=== PATIENT | female | born 1985 | race Caucasian/White ===

== ENCOUNTER 2018-03-24 12:16 | Emergency (ER) | payer MEDICAID, OTHER ==
[2018-03-24 13:16] LABS: ADD MAN DIFF? NO
[2018-03-24 13:21] LABS: WHITE BLOOD COUNT 7.5 10^3/ul (4.8-10.8)
[2018-03-24 13:21] LABS: BASOPHILS % 0.4 % (0.0-2.0); EOSINOPHILS # 0.1 10^3/ul (0.0-0.5); EOSINOPHILS % 1.1 % (0.0-7.0); HEMOGLOBIN 11.7 g/dl (12.0-16.0); LYMPHOCYTES # 1.7 10^3/ul (0.8-2.9); LYMPHOCYTES % 23.2 % (15.0-51.0); MEAN CORPUSCULAR HEMOGLOBIN 29.4 pg (29.0-33.0); MEAN CORPUSCULAR HGB CONC 33.4 g/dl (32.0-37.0); MEAN CORPUSCULAR VOLUME 87.9 fl (82.0-101.0); MEAN PLATELET VOLUME 9.2 fl (7.4-10.4); MONOCYTE # 0.4 10^3/ul (0.3-0.9); MONOCYTES % 4.7 % (0.0-11.0); NEUTROPHIL # 5.2 10^3/ul (1.6-7.5); NEUTROPHILS % 70.3 % (39.0-77.0); PLATELET COUNT 263 10^3/UL (140-415); RED BLOOD COUNT 3.98 10^6/ul (4.20-5.40); RED CELL DISTRIBUTION WIDTH 12.3 % (11.5-14.5)
[2018-03-24 13:57] LABS: ADD UMIC YES; UR ASCORBIC ACID NEGATIVE (NEGATIVE); UR BACTERIA FEW /HPF (NONE SEEN); UR BILIRUBIN (Dip) NEGATIVE (NEGATIVE); UR BLOOD (Dip) 1+ mg/dL (NEGATIVE); UR CLARITY SLIGHTLY CLOUDY (CLEAR); UR COLOR YELLOW (YELLOW); UR GLUCOSE (Dip) NEGATIVE (NEGATIVE); UR KETONES (Dip) NEGATIVE (NEGATIVE); UR LEUKOCYTE ESTERASE (Dip) 3+ Leu/ul (NEGATIVE); UR NITRITE (Dip) POSITIVE (NEGATIVE); UR RBC 4 /HPF (0-5); UR SPECIFIC GRAVITY (Dip) 1.013 (1.003-1.030); UR SQUAMOUS EPITHELIAL CELL FEW /HPF (FEW); UR TOTAL PROTEIN (Dip) NEGATIVE (NEGATIVE); UR UROBILINOGEN (Dip) NEGATIVE (NEGATIVE); UR WBC 6 /HPF (0-5)
[2018-03-24] MEDS: ACETAMINOPHEN 500 MG TAB PO (14:32)
[2018-03-24] MEDS: CEPHALEXIN 500 MG CAP PO (14:32)
== END 2018-03-24 14:59 | disposition home or self-care (01) ==
LOC: FTE 12:16
DX: O26.891 Other specified pregnancy related conditions, first trimester (principal); R10.2 Pelvic and perineal pain; Z3A.01 Less than 8 weeks gestation of pregnancy
CPT/HCPCS: 36415; 76801; 76817; 81001; 84702; 85025; 86900; 86901; 99284-25

== ENCOUNTER 2018-06-11 18:34 | Emergency (ER) | payer SELFPAY, MEDICAID ==
[2018-06-11 21:23] LABS: ADD MAN DIFF? NO
[2018-06-11 21:30] LABS: BASOPHIL # 0.1 10^3/ul (0.0-0.1); BASOPHILS % 0.6 % (0.0-2.0); EOSINOPHILS # 0.2 10^3/ul (0.0-0.5); EOSINOPHILS % 2.4 % (0.0-7.0); HEMATOCRIT 37.3 % (37.0-47.0); HEMOGLOBIN 12.9 g/dl (12.0-16.0); LYMPHOCYTES # 1.7 10^3/ul (0.8-2.9); LYMPHOCYTES % 20.6 % (15.0-51.0); MEAN CORPUSCULAR HEMOGLOBIN 30.8 pg (29.0-33.0); MEAN CORPUSCULAR HGB CONC 34.6 g/dl (32.0-37.0); MONOCYTE # 0.4 10^3/ul (0.3-0.9); NEUTROPHIL # 5.9 10^3/ul (1.6-7.5); NEUTROPHILS % 70.1 % (39.0-77.0); PLATELET COUNT 294 10^3/UL (140-415); RED BLOOD COUNT 4.19 10^6/ul (4.20-5.40); RED CELL DISTRIBUTION WIDTH 12.9 % (11.5-14.5)
[2018-06-11 21:30] LABS: WHITE BLOOD COUNT 8.4 10^3/ul (4.8-10.8)
[2018-06-11 21:43] LABS: ADD UMIC YES; UR ASCORBIC ACID NEGATIVE (NEGATIVE); UR BACTERIA FEW /HPF (NONE SEEN); UR BILIRUBIN (Dip) NEGATIVE (NEGATIVE); UR BLOOD (Dip) 1+ mg/dL (NEGATIVE); UR CLARITY SLIGHTLY CLOUDY (CLEAR); UR COLOR YELLOW (YELLOW); UR GLUCOSE (Dip) NEGATIVE (NEGATIVE); UR KETONES (Dip) TRACE mg/dL (NEGATIVE); UR LEUKOCYTE ESTERASE (Dip) 3+ Leu/ul (NEGATIVE); UR NITRITE (Dip) NEGATIVE (NEGATIVE); UR RBC 2 /HPF (0-5); UR SPECIFIC GRAVITY (Dip) 1.013 (1.003-1.030); UR SQUAMOUS EPITHELIAL CELL FEW /HPF (FEW); UR TOTAL PROTEIN (Dip) NEGATIVE (NEGATIVE); UR UROBILINOGEN (Dip) NEGATIVE (NEGATIVE); UR WBC 7 /HPF (0-5)
== END 2018-06-11 23:28 | disposition home or self-care (01) ==
LOC: FTE 18:34
DX: O9A.212 Injury, poisoning and certain other consequences of external causes complicating pregnancy, second trimester (principal); S39.012A Strain of muscle, fascia and tendon of lower back, initial encounter; O23.12 Infections of bladder in pregnancy, second trimester; S39.93XA Unspecified injury of pelvis, initial encounter; R10.2 Pelvic and perineal pain; V49.40XA Driver injured in collision with unspecified motor vehicles in traffic accident, initial encounter; Z3A.18 18 weeks gestation of pregnancy
CPT/HCPCS: 76805; 81001; 84702; 85025; 86900; 86901; 99284-25

== ENCOUNTER 2018-11-01 11:34 | Outpatient (CLI) | payer MEDICAID ==
[2018-11-01 16:06] LABS: ADD UMIC YES; UR ASCORBIC ACID NEGATIVE (NEGATIVE); UR BACTERIA FEW /HPF (NONE SEEN); UR BILIRUBIN (Dip) NEGATIVE (NEGATIVE); UR BLOOD (Dip) NEGATIVE (NEGATIVE); UR CLARITY CLOUDY (CLEAR); UR COLOR YELLOW (YELLOW); UR GLUCOSE (Dip) NEGATIVE (NEGATIVE); UR KETONES (Dip) NEGATIVE (NEGATIVE); UR LEUKOCYTE ESTERASE (Dip) 1+ Leu/ul (NEGATIVE); UR MUCUS FEW /HPF (NONE SEEN); UR NITRITE (Dip) NEGATIVE (NEGATIVE); UR RBC 3 /HPF (0-5); UR SPECIFIC GRAVITY (Dip) 1.017 (1.003-1.030); UR SQUAMOUS EPITHELIAL CELL MANY /HPF (FEW); UR TOTAL PROTEIN (Dip) NEGATIVE (NEGATIVE); UR UROBILINOGEN (Dip) NEGATIVE (NEGATIVE); UR WBC 2 /HPF (0-5)
== END 2018-11-01 16:35 | disposition home or self-care (01) ==
LOC: OBT 11:34 → L-D 11:34 → OBT 16:35
DX: O26.893 Other specified pregnancy related conditions, third trimester (principal); R10.2 Pelvic and perineal pain; O36.63X0 Maternal care for excessive fetal growth, third trimester, not applicable or unspecified; O62.9 Abnormality of forces of labor, unspecified; Z3A.38 38 weeks gestation of pregnancy; Z87.440 Personal history of urinary (tract) infections
CPT/HCPCS: 76818; 81001; 82962

== ENCOUNTER 2018-11-04 07:55 | Inpatient (IN) | payer MEDICAID ==
[2018-11-04] MEDS ORDERED: MINERAL OIL LIGHT 10 ML VIAL TOP (08:30)
[2018-11-04] MEDS ORDERED: CARBOPROST 250 MCG INJ IM (08:30)
[2018-11-04] MEDS ORDERED: IBUPROFEN 600 MG TAB PO (08:30)
[2018-11-04] MEDS ORDERED: METHYLERGONOVINE 0.2 MG INJ IM (08:30)
[2018-11-04] MEDS ORDERED: LIDOCAINE 1% (MPF) 30 ML INJ INJ (08:30)
[2018-11-04] MEDS ORDERED: OXYTOCIN 30 UNITS/LR 500 ML IV ×3 (08:30→10:00)
[2018-11-04] MEDS ORDERED: MISOPROSTOL 200 MCG TAB PR (08:30)
[2018-11-04] MEDS ORDERED: BUTORPHANOL 2 MG INJ IV (08:30)
[2018-11-04 08:41] LABS: ADD MAN DIFF? NO
[2018-11-04 08:44] LABS: WHITE BLOOD COUNT 8.2 10^3/ul (4.8-10.8)
[2018-11-04 08:44] LABS: BASOPHIL # 0.1 10^3/ul (0.0-0.1); BASOPHILS % 0.6 % (0.0-2.0); EOSINOPHILS # 0.3 10^3/ul (0.0-0.5); EOSINOPHILS % 3.3 % (0.0-7.0); HEMATOCRIT 38.4 % (37.0-47.0); HEMOGLOBIN 13.2 g/dl (12.0-16.0); LYMPHOCYTES # 1.6 10^3/ul (0.8-2.9); LYMPHOCYTES % 19.2 % (15.0-51.0); MEAN CORPUSCULAR HEMOGLOBIN 31.2 pg (29.0-33.0); MEAN CORPUSCULAR HGB CONC 34.4 g/dl (32.0-37.0); MEAN CORPUSCULAR VOLUME 90.8 fl (82.0-101.0); MEAN PLATELET VOLUME 10.1 fl (7.4-10.4); MONOCYTE # 0.4 10^3/ul (0.3-0.9); MONOCYTES % 5.4 % (0.0-11.0); NEUTROPHIL # 5.8 10^3/ul (1.6-7.5); NEUTROPHILS % 70.5 % (39.0-77.0); PLATELET COUNT 227 10^3/UL (140-415); RED BLOOD COUNT 4.23 10^6/ul (4.20-5.40); RED CELL DISTRIBUTION WIDTH 12.6 % (11.5-14.5)
[2018-11-04 09:02] LABS: INR 0.89; PROTIME 12.1 Sec (11.9-14.9); PT RATIO 0.9
[2018-11-04 09:03] LABS: PARTIAL THROMBOPLASTIN TIME 27.4 Sec (23.0-35.0)
[2018-11-04 09:40] LABS: HEPATITIS B SURFACE ANTIGEN NEGATIVE (NEGATIVE)
[2018-11-04] MEDS ORDERED: MISOPROSTOL 50 MCG CAPSULE VAG (10:00)
[2018-11-04] MEDS: LACTATED RINGER'S 1,000 ML IV ×5 (11:26→21:19)
[2018-11-04] MEDS: MISOPROSTOL 50 MCG CAPSULE PO (11:29)
[2018-11-04] MEDS ORDERED: FENTAnyl 2MCG/ML-ROPIV 0.2% 100 ML (13:53)
[2018-11-04] MEDS ORDERED: NALOXONE (0.4 MG/ML) INJ IV (14:00)
[2018-11-04 15:20] LABS: RAPID PLASMA REAGIN NONREACTIVE (NR)
[2018-11-04] MEDS: ONDANSETRON 4 MG INJ IV (18:18)
[2018-11-04] MEDS: FENTAnyl 2MCG/ML-ROPIV 0.2% 100 ML BAG EPI (22:38)
[2018-11-05] MEDS: ONDANSETRON 4 MG INJ IV ×2 (00:49→07:29)
[2018-11-05] MEDS: LACTATED RINGER'S 1,000 ML IV ×4 (02:50→16:43)
[2018-11-05] MEDS: OXYTOCIN 30 UNITS/LR 500 ML IV ×2 (02:59→17:25)
[2018-11-05] MEDS ORDERED: EPHEDrine SULFATE 50 MG/5 ML SYG (06:17)
[2018-11-05] MEDS: EPHEDrine SULFATE 50 MG/5 ML SYG IV (06:18)
[2018-11-05] MEDS: FENTAnyl 2MCG/ML-ROPIV 0.2% 100 ML BAG EPI ×2 (09:17→16:47)
[2018-11-05] MEDS: KETOROLAC 30 MG INJ IV (17:40)
[2018-11-05] MEDS: LACTATED RINGER'S 1,000 ML IV* (18:28)
[2018-11-05] MEDS ORDERED: MISOPROSTOL 200 MCG TAB PR (18:30)
[2018-11-05] MEDS ORDERED: ZOLPIDEM 5 MG TAB PO (18:30)
[2018-11-05] MEDS ORDERED: DIBUCAINE 1% 30 GM OINT TOP (18:30)
[2018-11-05] MEDS ORDERED: CARBOPROST 250 MCG INJ IM (18:30)
[2018-11-05] MEDS ORDERED: OXYTOCIN 30 UNITS/LR 500 ML IV (18:30)
[2018-11-05] MEDS ORDERED: HYDROCODONE/APAP (5/325) TAB PO (18:30)
[2018-11-05] MEDS ORDERED: METHYLERGONOVINE 0.2 MG INJ IM (18:30)
[2018-11-05] MEDS: BENZOCAINE 20% 56 ML SPRAY TOP (18:44)
[2018-11-05] MEDS: WITCH HAZEL/GLYCERIN PAD PR (18:44)
[2018-11-05] MEDS: LANOLIN HPA 1 PKT TOP (18:44)
[2018-11-05] MEDS: CEPHALEXIN 500 MG CAP PO ×2 (18:45→23:40)
[2018-11-05] MEDS: IBUPROFEN 600 MG TAB PO ×2 (18:45→23:51)
[2018-11-05] MEDS: MAGNESIUM HYDROXIDE 30ML CUP PO (21:45)
[2018-11-05] MEDS: SENNA/DOCUSATE NA (8.6MG/50MG) TAB PO (21:45)
[2018-11-05] MEDS: ESTROGENS CONJUGATED 42.5 GM VAG CR VAG (21:46)
[2018-11-05] MEDS: HYDROCODONE/APAP (5/325) TAB PO (21:46)
[2018-11-06] MEDS: LACTATED RINGER'S 1,000 ML IV* (02:27)
[2018-11-06] MEDS: WITCH HAZEL/GLYCERIN PAD PR (02:40)
[2018-11-06] MEDS: CEPHALEXIN 500 MG CAP PO ×4 (06:00→23:34)
[2018-11-06] MEDS: IBUPROFEN 600 MG TAB PO ×4 (06:01→23:34)
[2018-11-06 08:42] LABS: ADD MAN DIFF? NO
[2018-11-06 08:46] LABS: WHITE BLOOD COUNT 8.1 10^3/ul (4.8-10.8)
[2018-11-06 08:46] LABS: BASOPHILS % 0.4 % (0.0-2.0); EOSINOPHILS # 0.3 10^3/ul (0.0-0.5); EOSINOPHILS % 3.2 % (0.0-7.0); HEMATOCRIT 29.4 % (37.0-47.0); HEMOGLOBIN 10.2 g/dl (12.0-16.0); LYMPHOCYTES # 1.5 10^3/ul (0.8-2.9); LYMPHOCYTES % 18.1 % (15.0-51.0); MEAN CORPUSCULAR HEMOGLOBIN 31.8 pg (29.0-33.0); MEAN CORPUSCULAR HGB CONC 34.7 g/dl (32.0-37.0); MEAN CORPUSCULAR VOLUME 91.6 fl (82.0-101.0); MEAN PLATELET VOLUME 10.3 fl (7.4-10.4); MONOCYTE # 0.5 10^3/ul (0.3-0.9); MONOCYTES % 6.3 % (0.0-11.0); NEUTROPHIL # 5.8 10^3/ul (1.6-7.5); NEUTROPHILS % 71.3 % (39.0-77.0); PLATELET COUNT 142 10^3/UL (140-415); RED BLOOD COUNT 3.21 10^6/ul (4.20-5.40); RED CELL DISTRIBUTION WIDTH 12.3 % (11.5-14.5)
[2018-11-06] MEDS: ESTROGENS CONJUGATED 42.5 GM VAG CR VAG ×2 (10:03→20:57)
[2018-11-06] MEDS: MAGNESIUM HYDROXIDE 30ML CUP PO ×2 (10:03→20:57)
[2018-11-06] MEDS: SENNA/DOCUSATE NA (8.6MG/50MG) TAB PO ×2 (10:03→20:57)
[2018-11-07] MEDS: IBUPROFEN 600 MG TAB PO ×2 (05:37→12:37)
[2018-11-07] MEDS: CEPHALEXIN 500 MG CAP PO ×2 (05:37→12:38)
[2018-11-07] MEDS: MAGNESIUM HYDROXIDE 30ML CUP PO (09:00)
[2018-11-07] MEDS: DIPHTH/TET/ACEL PERTUSS (ADULT) 0.5 ML VIAL IM* (09:00)
[2018-11-07] MEDS: VARICELLA VACCINE LIVE/PF 1,350 UNIT/0.5 ML ML SC* (09:00)
[2018-11-07] MEDS: MEASLES,MUMPS,RUBELLA VACCINE INJ SC* (09:00)
[2018-11-07] MEDS: SENNA/DOCUSATE NA (8.6MG/50MG) TAB PO (09:54)
[2018-11-07] MEDS: ESTROGENS CONJUGATED 42.5 GM VAG CR VAG (09:55)
== END 2018-11-07 14:30 | disposition home or self-care (01) | DRG 807 ==
LOC: L-D 07:55 → PP1 11-05 18:34
PROVIDERS: Obstetrics & Gynecology
PROC: 10E0XZZ Delivery of Products of Conception, External Approach (ICD-10-PCS; principal; 2018-11-05)
PROC: 0W8NXZZ Division of Female Perineum, External Approach (ICD-10-PCS; 2018-11-05)
PROC: 0HQ9XZZ Repair Perineum Skin, External Approach (ICD-10-PCS; 2018-11-05)
DX: O76 Abnormality in fetal heart rate and rhythm complicating labor and delivery (principal); O70.0 First degree perineal laceration during delivery; Z37.0 Single live birth; Z3A.39 39 weeks gestation of pregnancy
CPT/HCPCS: 62319; 76815; 85025; 85610; 85730; 86592; 86900; 86901; 87340; 90716